=== PATIENT | female | born 1975 | race Caucasian/White ===

== ENCOUNTER 2019-08-21 14:17 | Emergency (ER) | payer OTHER ==
[~2019-08-21] VITALS: Ht 157.5 cm; Wt 52.2 kg
[~2019-08-21 14:17] MED LIST: ALPRAZOLAM; DOLGIC PLUS TA1 EACH PO; PHENERGAN 25 MG25 M1 PO; RISPERDAL; VALTREX
[2019-08-21] MEDS ORDERED: FLEXERIL PO (14:28)
[2019-08-21 14:30] LABS: URINE BILIRUBIN NEGATIVE (Negative); URINE BLOOD 2+ (Negative); URINE CLARITY CLEAR; URINE COLOR YELLOW; URINE GLUCOSE-RANDOM NEGATIVE (Negative); URINE KETONES 2+ (Negative); URINE NITRITE-REFLEX NEGATIVE (Negative); URINE PROTEIN 1+ (Negative); URINE SPECIFIC GRAVITY >= 1.030 (1.005-1.030); URINE UROBILINOGEN 0.2 E.U./dl (0.2-1.0)
[2019-08-21 14:32] LABS: URINE LEUKOCYTES-REFLEX 3+ (Negative)
[2019-08-21 14:46] LABS: MUCUS None Seen strn/LPF (None Seen); SQUAMOUS 4-10 Moderate /LPF (0-3)
[2019-08-21 14:47] LABS: BACTERIA-REFLEX 1-9 Few /HPF (None Seen); CASTS None Seen /LPF (None Seen); CRYSTALS None Seen /LPF (None Seen); URINE RBC 3-10 Few /HPF (0-2); URINE WBC-REFLEX >25 Many /HPF (0-5)
[2019-08-21] MEDS ORDERED: CIPRO500 MG PO (14:52)
[2019-08-21] MEDS ORDERED: NORCO 5-325 TA1 EAC1 PO (14:52)
[2019-08-21 15:23] VITALS: BP 126/75
== END 2019-08-21 15:24 | disposition left against medical advice (07) ==
LOC: M.ERS 14:17
PROVIDERS: Physician Assistant
DX: N39.0 Urinary tract infection, site not specified (principal); E78.00 Pure hypercholesterolemia, unspecified